=== PATIENT | female | born 1940 | race Native Hawaiian/Other Pacific Islander ===

== ENCOUNTER 2017-01-20 12:56 | Outpatient (CLI) | payer OTHER ==
[~2017-01-20 12:56] MED LIST: ASPIR-8181 MG PO; CLOP75TA2 PO; ELIQUIS5 MG PO; LEVO0.0723 PO; METO50TA27 PO; OMEP40CA PO; TIKOSYN250 MCG PO
== END 2017-01-20 19:36 | disposition home or self-care (01) ==
LOC: MAMMO 12:56
DX: Z12.31 Encounter for screening mammogram for malignant neoplasm of breast (principal)
CPT/HCPCS: G0202-TC

== ENCOUNTER 2017-03-06 07:28 | Outpatient (CLI) | payer OTHER ==
[~2017-03-06] VITALS: Ht 165.1 cm; Wt 63.5 kg
== END 2017-03-06 19:29 | disposition home or self-care (01) ==
LOC: NM 07:28
DX: I10 Essential (primary) hypertension (principal); R53.83 Other fatigue; E78.4 Other hyperlipidemia
CPT/HCPCS: A9500; J2785

== ENCOUNTER 2018-07-15 11:54 | Outpatient (CLI) | payer OTHER | END 2018-07-15 23:56 | disposition home or self-care (01) | LOC: LABW 11:54 | DX: Z79.899 Other long term (current) drug therapy (principal) | CPT/HCPCS: 36415; 83970 ==

== ENCOUNTER 2019-03-18 16:26 | Observation (INO) | payer OTHER ==
[~2019-03-18] VITALS: Ht 165.1 cm; Wt 63.7 kg
[2019-03-18 16:45] VITALS: BP 206/84; TEMP 97.9
[2019-03-18] MEDS ORDERED: LIPITOR40 MG PO (16:55)
[2019-03-18] MEDS ORDERED: TRAM50TA PO (16:56)
[2019-03-18] MEDS ORDERED: LEVO0.0529 PO (16:56)
[2019-03-18 17:00] VITALS: BP 164/72; BP 164/73
[2019-03-18 17:20] LABS: PLATELET COUNT 378 K/uL (152-353)
[2019-03-18 17:25] LABS: POTASSIUM 3.9 mmol/L (3.6-5.2); SODIUM 137 mmol/L (136-145)
[2019-03-18 17:42] LABS: PARTIAL THROMBOPLASTIN TIME 23.6 SECONDS (24.5-33.6)
[2019-03-18 17:45] VITALS: BP 159/62
[2019-03-18 18:30] VITALS: BP 130/72
[2019-03-18 19:00] VITALS: BP 103/75; TEMP 97.6
[2019-03-18 20:26] VITALS: BP 187/67; TEMP 97.4; Ht 165.1 cm; Wt 63.7 kg
--- NOTE | 2019-03-18 21:17 | NUR ---
BP 187/67, ER DOCTOR NOTIFIED PER ORDERS. ORDER RECEIVED FOR [facility] MED.
[2019-03-19] VITALS: BP 112/40; TEMP 97.7
[2019-03-19 03:56] VITALS: BP 108/32; TEMP 97.8
[2019-03-19 05:23] LABS: PLATELET COUNT 293 K/uL (152-353)
[2019-03-19 06:00] LABS: POTASSIUM 4.2 mmol/L (3.6-5.2)
[2019-03-19 08:00] VITALS: BP 122/51; TEMP 97.5
[2019-03-19 12:00] VITALS: BP 148/57; TEMP 97.7
== END 2019-03-19 15:05 | disposition home or self-care (01) ==
LOC: ED 16:26 → MED/SURG 17:00
PROVIDERS: Family Medicine; ADMIT Internal Medicine
DX: R20.2 Paresthesia of skin (principal); E03.8 Other specified hypothyroidism; E78.49 Other hyperlipidemia; I25.10 Atherosclerotic heart disease of native coronary artery without angina pectoris; I48.91 Unspecified atrial fibrillation; I25.2 Old myocardial infarction
CPT/HCPCS: 36415; 80048; 80053; 81000; 84484; 85027; 85379; 85610; 85730; 93005; 99220; 99283; G0378

== ENCOUNTER 2019-04-06 12:54 | Outpatient (CLI) | payer OTHER ==
[~2019-04-06 12:54] MED LIST changes: +LEVO0.0529 PO; +LIPITOR40 MG PO; +TRAM50TA PO
== END 2019-04-06 19:24 | disposition home or self-care (01) ==
LOC: US 12:54
DX: I65.29 Occlusion and stenosis of unspecified carotid artery (principal)

== ENCOUNTER 2021-11-28 10:44 | Outpatient (CLI) | payer OTHER | END 2021-11-28 18:54 | disposition home or self-care (01) | LOC: RAD 10:44 | PROVIDERS: ATTEND Internal Medicine Sleep Medicine | DX: R06.00 Dyspnea, unspecified (principal) ==

== ENCOUNTER 2022-01-14 12:52 | Outpatient (CLI) | payer OTHER | END 2022-01-14 18:55 | disposition home or self-care (01) | LOC: MAMMO 12:52 | PROVIDERS: ATTEND Internal Medicine | DX: Z12.31 Encounter for screening mammogram for malignant neoplasm of breast (principal) ==

== ENCOUNTER 2022-01-28 14:29 | Outpatient (CLI) | payer OTHER | END 2022-01-28 20:14 | disposition home or self-care (01) | LOC: US 14:29 | PROVIDERS: ATTEND Internal Medicine | DX: I73.9 Peripheral vascular disease, unspecified (principal) ==

== ENCOUNTER 2022-05-02 12:00 | Outpatient (CLI) | payer OTHER | END 2022-05-02 19:17 | disposition home or self-care (01) | LOC: LABW 12:00 | PROVIDERS: ATTEND Internal Medicine | DX: R06.02 Shortness of breath (principal) | CPT/HCPCS: 36415; 82565; 84520 ==

== ENCOUNTER 2022-12-16 14:23 | Outpatient (CLI) | payer OTHER ==
[2022-12-16 14:57] LABS: POTASSIUM 4.6 mmol/L (3.6-5.2)
== END 2022-12-16 19:07 | disposition home or self-care (01) ==
LOC: CT 14:23
PROVIDERS: ATTEND Internal Medicine
DX: I50.9 Heart failure, unspecified (principal); I48.91 Unspecified atrial fibrillation; I38 Endocarditis, valve unspecified; I34.0 Nonrheumatic mitral (valve) insufficiency; I73.9 Peripheral vascular disease, unspecified; R06.02 Shortness of breath
CPT/HCPCS: 36415; 80053; Q9963

== ENCOUNTER 2022-12-16 15:43 | Emergency (ER) | payer OTHER ==
[~2022-12-16] VITALS: Ht 165.1 cm; Wt 61.2 kg
[2022-12-16 17:09] LABS: PLATELET COUNT 589 K/uL (152-353)
[2022-12-16 17:14] LABS: POTASSIUM 4.4 mmol/L (3.6-5.2)
[2022-12-16 18:05] VITALS: TEMP 97.2
[2022-12-16 20:20] VITALS: BP 114/63
== END 2022-12-16 20:20 | disposition short-term general hospital (02) ==
LOC: ED 15:43
PROVIDERS: Emergency Medicine Emergency Medical Services
DX: I21.4 Non-ST elevation (NSTEMI) myocardial infarction (principal); I25.119 Atherosclerotic heart disease of native coronary artery with unspecified angina pectoris; Z11.52 Encounter for screening for COVID-19
CPT/HCPCS: 36415; 80053; 81002; 83735; 83880; 84484; 85027; 85610; 85730; 87635; 93005; 96361; 96374; 96376; 99285; J1815; J3490; U0003

== ENCOUNTER 2023-04-16 11:08 | Day surgery (SDC) | payer OTHER | END 2023-04-16 15:10 | disposition home or self-care (01) | LOC: OR 11:08 | PROVIDERS: ATTEND Internal Medicine Gastroenterology | PROC: 0DBN8ZX Excision of Sigmoid Colon, Via Natural or Artificial Opening Endoscopic, Diagnostic (ICD-10-PCS; principal; 2023-04-16) | DX: D50.9 Iron deficiency anemia, unspecified (principal); D12.5 Benign neoplasm of sigmoid colon; K64.8 Other hemorrhoids | CPT/HCPCS: J0461; J2704; J7120 ==